=== PATIENT | male | born 1990 | race Caucasian/White ===

== ENCOUNTER 2021-12-26 14:42 | Emergency (ER) | payer OTHER, SELFPAY ==
[2021-12-26 14:59] VITALS: BP 152/82; PULSE 84; RESP 18; TEMP 36.7; O2SAT 98
--- NOTE | 2021-12-26 15:01 | ED.SKABFB ---
HPI - Skin/Abscess/Foreign Bdy General Chief complaint: Skin/Abscess/Foreign Body Stated complaint: poison leoncio Time Seen by Provider: 12/26/21 15:06 Source: patient and RN notes reviewed Mode of arrival: ambulatory Limitations: no limitations History of Present Illness HPI narrative: 31-year-old male presents with concern for rash on both feet. He reports he was exposed to poison leoncio several days ago and developed a rash. Reports history of allergy to poison leoncio. He denies any swollen lips, swollen tongue, trouble breathing. Reports he cleaned it with alcohol. He reports that spreading to his stomach and his arms complaint: rash Related Data Home Medications Medication Instructions Recorded Confirmed sertraline 100 mg tablet 150 mg PO DAILY 12/26/21 12/26/21 Allergies Allergy/AdvReac Type Severity Reaction Status Date / Time Penicillins Allergy Severe Rash Verified 12/26/21 15:10 poison leoncio extract Allergy Severe Rash Verified 12/26/21 15:10 Review of Systems Review of Systems: CONSTITUTIONAL: Denies malaise, chills, sweats, or fever. EYES: Denies redness, or discharge. ENT: Denies rhinorrhea, congestion, swollen lips, swollen tongue CARDIOVASCULAR: Denies chest pain, palpitations, or edema. RESPIRATORY: Denies cough or dyspnea. GASTROINTESTINAL: Denies abdominal pain, nausea, vomiting SKIN: Reports itchy rash both feet and ankles, stomach MUSCULOSKELETAL: Denies joint pain or myalgia. NEUROLOGIC: Denies headache. All systems reviewed & are unremarkable except as noted in HPI and below PMFSH Comments At time of signature, agree with nursing past medical, surgical, social and family history. There is no relevant family history pertinent to the presenting complaint Exam Narrative: GENERAL: Well-appearing, well-nourished, and in no acute distress. HEAD: Normocephalic, atraumatic. EYES: PERRLA, conjunctivae clear, and EOMI. ENT: Mucous membranes moist. Oropharynx without edema, erythema or lesions. NECK: Supple. No lymphadenopathy CHEST: Clear to auscultation. No respiratory distress. HEART: Regular rate and rhythm. SKIN: Warm, dry. Patches of erythema and edema NEURO: Alert and oriented x3. PSYCH: Normal mood and affect Course Course Emergency Course: Patient is aware of diagnosis, understands and agrees to treatment plan. Anticipatory guidance given. Patient agrees to follow-up as directed and is aware of reasons to seek care at the emergency department. Portions of this record may have been created with voice recognition software Level of Care: Express Care Visit Vital Signs Vital signs: Vital Signs Temperature 98.0 F 12/26/21 14:59 Pulse Rate 84 12/26/21 14:59 Respiratory Rate 18 12/26/21 14:59 Blood Pressure 152/82 H 12/26/21 14:59 Pulse Oximetry 98 12/26/21 14:59 Oxygen Delivery Room Air 12/26/21 14:59 Temperature 98.0 F 12/26/21 14:59 Pulse Rate 84 12/26/21 14:59 Respiratory Rate 18 12/26/21 14:59 Blood Pressure 152/82 H 12/26/21 14:59 Pulse Oximetry 98 12/26/21 14:59 Oxygen Delivery Room Air 12/26/21 14:59 Reviewed. MDM - Skin/Abscess/Foreign Bdy MDM Narrative Medical decision making narrative: Does not appear at this time to be erythema multiforme, bullous, SJS, TEN; no evidence at this time to suggest RMSF, endocarditis or Lyme disease; patient looks well, nontoxic and is tolerating oral intake; no neurologic signs or symptoms; no headache, photophobia or neck pain; afebrile; appropriate for initial outpatient treatment; discussed the importance of follow-up, patient agrees; question, viral exanthema, contact dermatitis, allergic dermatitis, eczema, urticaria. No soft palate or uvula edema, no tongue, lip edema or other mucosal involvement, no respiratory compromise, no stridor, no wheezing, no wheezing, no history of syncope, no hypotension, no nausea, vomiting, or diarrhea. Instructed patient to go to nearest ER immediately for any worsenin
== END 2021-12-26 15:19 | disposition home or self-care (01) ==
PROVIDERS: Emergency Provider Nurse Practitioner
DX: L25.9 Unspecified contact dermatitis, unspecified cause (principal); F41.9 Anxiety disorder, unspecified; F32.A Depression, unspecified
CPT/HCPCS: 99203; G0463

== ENCOUNTER 2022-01-30 19:47 | Emergency (ER) | payer OTHER, SELFPAY ==
--- NOTE | 2022-01-30 19:53 | ED.SKABFB ---
HPI - Skin/Abscess/Foreign Bdy General Stated complaint: poison tsering Time Seen by Provider: 01/30/22 19:55 Source: patient Mode of arrival: ambulatory Limitations: no limitations History of Present Illness HPI narrative: Mr. Sawant is a 31-year-old male patient presenting to the clinic today with complaints of possible poison tserign to his bilateral legs and arms. He reports that he first noticed this yesterday. He has been out in the [place]. He says he is highly susceptible to getting poison tsering Related Data Home Medications Medication Instructions Recorded Confirmed sertraline 100 mg tablet 150 mg PO DAILY 12/26/21 12/26/21 Allergies Allergy/AdvReac Type Severity Reaction Status Date / Time Penicillins Allergy Severe Rash Verified 12/26/21 15:10 poison tsering extract Allergy Severe Rash Verified 12/26/21 15:10 Review of Systems Review of Systems: Pertinent positives per HPI. Patient denies any fever, chills, headache, visual changes, dizziness, cough, runny nose, sore throat, shortness of breath, chest pain, palpitations, nausea, vomiting, diarrhea, constipation, abdominal pain, or any urinary issues. PMFSH Comments At the time of my signature, I reviewed and agree with the nursing past medical, surgical, social, and family history. There is no relevant family history pertinent to the patient complaint. Exam Narrative: General: Well-developed, well nourished, in no apparent distress Head: Normocephalic, atraumatic. Cardio: Regular rate and rhythm, s1 and s2 normal, no murmur appreciated. Resp: Clear to auscultation bilaterally, no rhonchi, rales, wheezing or rubs. Integumentary: [place], warm, and dry, intact without lesion, scattered red raised itchy blister like rash to the bilateral lower extremities and arms Course Course Emergency Course: Portions of this record may have been created with voice recognition software. Level of Care: Express Care Visit Vital Signs Vital signs: Vital signs reviewed MDM - Skin/Abscess/Foreign Bdy MDM Narrative Medical decision making narrative: At the time of visit patient is resting comfortably on the exam table. I suspect the patient has poison tsering/contact dermatitis due to plant. Supportive measures were discussed with the patient he voiced understanding of discharge instructions and agrees to treatment plan. Prescriptions for prednisone and triamcinolone cream was sent to his pharmacy. Differential Diagnosis Differential diagnosis: Likely urticaria, cellulitis, eczema, insect bites and contact dermatitis Discharge Plan Discharge Clinical Impression: Allergic contact dermatitis due to plant Patient Disposition: Home, Self-Care Condition: Stable Instructions: Antibiotic Form, Poison Tsering (ED) Additional Instructions: Avoid scratching Avoid hot showers Take prednisone as prescribed Apply triamcinolone cream as prescribed May use calamine lotion to the affected areas May take Benadryl 25 to 50 mg every 6 hours as needed for itching Follow-up with your PCP in 3 to 5 days if symptoms persist or sooner if they worsen Prescriptions: New prednisone 20 mg tablet 40 mg PO DAILY 5 Days Qty: 10 0RF triamcinolone acetonide 0.1 % cream 1 applic topical BID 7 Days Qty: 30 0RF No Action sertraline 100 mg tablet 150 mg PO DAILY triamcinolone acetonide 0.1 % cream 1 applic TOPICAL BID 7 Days Qty: 80 0RF prednisone 10 mg tablet 10 mg PO DAILY Qty: 42 0RF Rx Instructions: 6 tabs days 1-2, 5 tabs days 3-4, 4 tabs days 5-6, 3 tabs days 7-8, 2 tabs days 9-10, 1 tab days 11-12 Follow-up/Referrals: UNKNOWN,DOCTOR [Primary Care Provider] - Time of Disposition: 19:56 Quality NIHSS Nursing Documentation ED NIHSS nursing documentation: reviewed/agree
[2022-01-30 19:55] VITALS: BP 154/91; PULSE 77; RESP 16; TEMP 36.1; O2SAT 100
== END 2022-01-30 20:00 | disposition home or self-care (01) ==
PROVIDERS: Emergency Provider Nurse Practitioner Family
DX: L23.7 Allergic contact dermatitis due to plants, except food (principal)
CPT/HCPCS: 99213; G0463